=== PATIENT | female | born 2000 | race Caucasian/White ===

== ENCOUNTER 2021-02-01 13:46 | Emergency (ER) | payer MEDICAID, SELFPAY ==
--- NOTE | ~2021-02-01 | XR_ITS ---
EXAMINATION: XR KNEE, RIGHT CLINICAL INFORMATION: Right knee pain status post injury. COMPARISON: None TECHNIQUE: Four views of the right knee. FINDINGS: Bones and soft tissues are normal. No fracture or joint effusion. Alignment is anatomic. Joint spaces are well maintained. No abnormal soft tissue calcification. XR/XR knee RT 4V IMPRESSION: Unremarkable right knee.
[2021-02-01 14:09] VITALS: BP 107/68; PULSE 90; RESP 18; TEMP 36.8; O2SAT 97; BMI 28.3
--- NOTE | 2021-02-01 14:57 | ED.LOWEXIN ---
HPI - Extremity Injury (Lower) General Chief Complaint: Extremity Injury, Lower Stated Complaint: rt leg pain Time Seen by Provider: 02/01/21 14:57 History of Present Illness HPI Narrative: Complains of right knee pain after twisting it, pain is mild, he twisted it yesterday Related Data Previous Rx's Medication Instructions Recorded ibuprofen 600 mg PO Q6H PRN #20 tab 02/01/21 ibuprofen 600 mg PO Q6H PRN #20 tab 02/01/21 Allergies Allergy/AdvReac Type Severity Reaction Status Date / Time No Known Allergies Allergy Unverified 08/07/20 17:00 Review of Systems Review of Systems: Positive for right knee pain, negatives are no fever no chills no dizziness no weakness no neck pain no back pain no rash no numbness no weakness, no other joint pains PMFSH Past Medical History Source: nursing notes reviewed Medical History (Updated 02/07/21 @ 10:28 by DELIA Martinez) No known health problems Social History Social History Advance Directives: No Advance Directives Information Provided: No Physical Exam Vital Signs: Vital Signs: Last Vital Signs Temp 98.2 F 02/01/21 14:09 Pulse 90 02/01/21 14:09 Resp 18 02/01/21 14:09 BP 107/68 02/01/21 14:09 Pulse Ox 97 02/01/21 14:09 Body Mass Index 28.3 General appearance is no acute distress, comfortable relax and cooperative The neck is supple Respiratory no acute distress Extremities the right knee is tender to the touch there is mild swelling no obvious effusion not red not warm extends to 180 flexes to around 90, he can do a straight leg raise no evidence of quadriceps or patellar injury Neurovascular intact distal Skin normal, no rashes Neuro no focal deficit, he is walking with a slight limp Course Course Course Narrative: Right knee x-ray was normal, patient is referred to Orthopedics as needed for follow-up for knee sprain Discharge Plan Discharge Clinical Impression: Right knee sprain Qualifiers: Encounter type: initial encounter Involved ligament of knee: unspecified ligament Qualified Code(s): S83.91XA - Sprain of unspecified site of right knee, initial encounter Patient Disposition: Home, Self-Care Additional Instructions: X-ray was normal, follow with orthopedist for further evaluation Prescriptions: New ibuprofen 600 mg tablet 600 mg PO Q6H PRN (Reason: pain) Qty: 20 RF: 0 ibuprofen 600 mg tablet 600 mg PO Q6H PRN (Reason: pain) Qty: 20 RF: 0 Referrals: Cristopher Gill MD [Physician] - 2 days (Right knee sprain) Stand Alone Forms: Work/School Release Interventions: ED Discharge Assessment Last Done: 02/01/21 16:26 Discharge Date/Time: 02/01/21 16:27
== END 2021-02-01 16:27 | disposition home or self-care (01) ==
PROVIDERS: Emergency Provider Emergency Medicine
DX: S83.8X1A Sprain of other specified parts of right knee, initial encounter (principal); W50.0XXA Accidental hit or strike by another person, initial encounter; Y93.9 Activity, unspecified; Y92.019 Unspecified place in single-family (private) house as the place of occurrence of the external cause; Y99.9 Unspecified external cause status
CPT/HCPCS: 73564; 99283

== ENCOUNTER 2021-06-21 17:38 | Emergency (ER) | payer OTHER, MEDICAID, SELFPAY ==
[2021-06-21 17:56] VITALS: BP 118/74; PULSE 93; RESP 18; TEMP 36; O2SAT 98; BMI 27.4
[2021-06-21 19:37] VITALS: BP 112/63; PULSE 88; RESP 18; TEMP 36.8; O2SAT 99
[2021-06-21 19:38] VITALS: BP 109/73; PULSE 89; RESP 16; O2SAT 98
--- NOTE | 2021-06-21 19:40 | PC.NURSE ---
patient a&ox3, pt c/o 9 pain, to bilateral shoulders and neck, vss, will continue to monitor.
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
== END 2021-06-21 20:52 | disposition home or self-care (01) ==
PROVIDERS: Emergency Provider Internal Medicine
DX: S19.9XXA Unspecified injury of neck, initial encounter (principal); M54.2 Cervicalgia; V49.9XXA Car occupant (driver) (passenger) injured in unspecified traffic accident, initial encounter; Y93.9 Activity, unspecified; Y92.410 Unspecified street and highway as the place of occurrence of the external cause
CPT/HCPCS: 99282; 99284

== ENCOUNTER 2022-03-04 08:35 | Emergency (ER) | payer MEDICAID, SELFPAY ==
--- NOTE | ~2022-03-04 | XR_ITS ---
EXAMINATION: XR RIBS, BILATERAL CLINICAL INFORMATION: Pain COMPARISON: 02/09/2019 TECHNIQUE: Single view of the chest and 3 detailed views of the ribs FINDINGS: The chest film shows no pneumothorax or effusion. Mediastinal contours are within normal limits. The detailed rib images do not demonstrate evidence for fracture. XR/XR ribs BI min 4V w CXR1V IMPRESSION: No suspicious finding. No pneumothorax or effusion. No fracture is seen
[2022-03-04 09:19] VITALS: BP 115/72; PULSE 93; RESP 18; TEMP 36.3; O2SAT 97; BMI 26.9
--- NOTE | 2022-03-04 10:13 | ED.GENADULT ---
HPI - General Adult General Chief complaint: General Medical Stated complaint: both sides rib pain Time Seen by Provider: 03/04/22 09:00 Source: patient Mode of arrival: ambulatory Limitations: no limitations History of Present Illness HPI narrative: 21-year-old female presents to the ER with complaints of bilateral lower rib pain intermittently for the last 1 year. She states that it worsened yesterday and she was feeling ?air bubbles in the bottom of her lungs. She denies any trauma or ever having any type of workup for this. She usually takes Tylenol with improvement in her rib pain. She states yesterday the pain got worse and she felt the air bubbles in her lungs so she decided to come to the ER today for evaluation. She denies any chest pain or shortness of breath. She has no fever or chills. She has no history of blood clots in herself or her family. She has no PE risk factors. MD complaint: Bilateral lower rib pain Onset (ago): year(s) Location: chest Radiation: non-radiation Severity: moderate Severity scale (1-10): 5 Quality: aching Pain Consistency: intermittent Relieving factors: medication Exacerbating factors: none Associated symptoms: denies other symptoms Treatments prior to arrival: none Related Data Previous Rx's Medication Instructions Recorded ibuprofen 600 mg tablet 600 mg PO Q6H PRN #20 tab 02/01/21 ibuprofen 600 mg tablet 600 mg PO Q6H PRN #20 tab 02/01/21 ibuprofen 600 mg tablet 600 mg PO Q6H PRN #20 tab 06/21/21 lidocaine 5 % topical patch 1 patch TOPICAL DAILY #15 ea 03/04/22 naproxen 500 mg tablet 500 mg PO BID PRN #20 tab 03/04/22 Allergies Allergy/AdvReac Type Severity Reaction Status Date / Time No Known Allergies Allergy Unverified 08/07/20 17:00 Review of Systems Review of Systems: Constitutional: No Fever, No Chills ENT/Mouth: No sore throat, No Rhinorrhea Cardiovascular: + Chest Pain (lower ribs), No SOB, No Orthopnea, No Edema Respiratory: No Cough, No Sputum, No Wheezing, No dyspnea Gastrointestinal: No Nausea, No Vomiting, No Diarrhea, No abdominal Pain Musculoskeletal: No joint pain, No Myalgias Skin: No Skin Lesions, No rash Neuro: No Weakness, No Dizziness, No Headache Heme/Lymph: No Bruising, No Lymphadenopathy [facility] Past Medical History Medical History No known health problems Surgical History No history of previous surgery Social History Social History Alcohol intake: current Alcohol intake frequency: holidays/special occasions only Patient Tobacco Use Status: Never used Tobacco Advance Directives: No Advance Directives Information Provided: No Patient : No Physical Exam ED Vital Signs: Vital Signs - 24 hr 03/04/22 09:19 Temperature 97.3 F Pulse Rate 93 Respiratory Rate 18 Blood Pressure 115/72 Pulse Oximetry 97 BMI result Body Mass Index 26.9 Appearance: Alert. Oriented X3. No acute distress. Eyes: Pupils equal, round and reactive to light. ENT: Pharynx normal. Neck: Normal inspection. Neck supple. CVS: Normal heart rate and rhythm. Pulses normal. Normal inspection of the chest wall, mild bilateral lower rib tenderness without any crepitus or palpable mass. Respiratory: No respiratory distress. Breath sounds normal. Abdomen: Soft and nontender. +BS x4 Skin: Skin warm and dry. Normal skin color. Normal skin turgor. No rashes. Extremities: No lower extremity edema. No calf tenderness. Neuro: Oriented X 3. Grossly normal, nonfocal Course Course Course Narrative: 21-year-old female presents to the ER with nontraumatic bilateral rib pain for the last 1 year. Exam is benign. X-rays show normal ribs and lungs. Etiology most likely musculoskeletal, possible costochondritis. Will treat with NSAID and have her follow-up with her primary care doctor. Patient is stable for discharge home. Critical Care Time Critical Care Time Critical Care Time: No Discharge Plan Discharge Clinical Impression: Rib pain Patient Disposition: Home, Self-Care Instructions: Noncardiac Chest Pain (ED) Additional Instructions: Your x-rays today were normal. Recommend trial of anti-inflammatory pain medication and pain patches to help with your pain. Recommend following up with your doctor for further evaluation and treatment. If you develop new or worsening symptoms call 911 or come back to the ER for further evaluation. Prescriptions: New lidocaine 5 % adhesive patch,medicated 1 patch topical DAILY Qty: 15 0RF Rx Instructions: leave on most painful area for up to 12 hrs naproxen 500 mg tablet 500 mg PO BID PRN (Reason: pain) Qty: 20 0RF No Action ibuprofen 600 mg tablet 600 mg PO Q6H PRN (Reason: pain) Qty: 20 0RF ibuprofen 600 mg tablet 600 mg PO Q6H PRN (Reason: pain) Qty: 20 0RF ibuprofen 600 mg tablet 600 mg PO Q6H PRN (Reason: pain) Qty: 20 0RF Stand Alone Forms: Work/School Release
== END 2022-03-04 11:21 | disposition home or self-care (01) ==
PROVIDERS: Emergency Provider Emergency Medicine
DX: R07.81 Pleurodynia (principal); R07.82 Intercostal pain; Z79.899 Other long term (current) drug therapy
CPT/HCPCS: 71111; 99283

== ENCOUNTER 2023-07-22 12:59 | Outpatient (REF) | payer MEDICAID, SELFPAY ==
[2023-07-22 16:32] LABS: Estimated Average Glucose 100 mg/dL; Hemoglobin A1c % 5.1 % (<6.0)
[2023-07-22 16:33] LABS: Basophils Absolute Auto 0.1 X10*3/uL (0.0-0.2); Basophils Percent Auto 0.8 % (0-2); Eosinophils Absolute Auto 0.1 X10*3/uL (0.0-0.4); Eosinophils Percent Auto 0.9 % (0-4); Hematocrit 49.8 % (37.0-47.0); Hemoglobin 15.7 g/dl (12.0-16.0); Imm Gran Abs Auto 0.05 X10*3/uL (0.00-0.03); Imm Gran Pct Auto 0.6 % (0.0-0.4); Lymphocytes Absolute Auto 2.5 X10*3/uL (1.2-4.9); Lymphocytes Percent Auto 31.2 % (20-40); MANUAL DIFF FLAG SCAN; Mean Corpuscular HGB Conc 31.5 g/dl (31.0-35.0); Mean Corpuscular Hemoglobin 26.8 pg (27.0-33.0); Mean Platelet Volume 13.2 fL (9.4-12.3); Monocytes Absolute Auto 0.5 X10*3/uL (0.1-1.2); Monocytes Percent Auto 6.3 % (2-11); Neutrophils Absolute Auto 4.8 x10*3/uL (2.0-8.3); Neutrophils Percent Auto 60.2 % (45-73); Platelet Count 270 X10*3/uL (160-400); Red Blood Count 5.86 X10*6/uL (4.20-5.50); Red Cell Distribution Width 14.6 % (11.0-16.0); SCAN SMEAR FLAG 1
[2023-07-22 16:41] LABS: PLT ABN DIST 1
[2023-07-22 16:42] LABS: SLIDE REVIEW VERIFIED
[2023-07-22 16:51] LABS: Alanine Aminotransferase 19 U/L (0-31); Albumin Level 4.9 g/dL (3.5-5.0); Alkaline Phosphatase 78 U/L (39-117); Anion Gap 17 (12-20); Aspartate Amino Transferase 19 U/L (5-31); Bilirubin Total 0.8 mg/dL (0.0-1.0); Blood Urea Nitrogen 7 mg/dL (9-16); Calcium 10.3 mg/dL (8.4-10.2); Carbon Dioxide 20 mmol/L (22-29); Chloride 108 mmol/L (96-108); Cholesterol 200 mg/dL (<200); Estimated Glomerular Filt Rate > 60; Glucose Random 83 mg/dL (60-115); HDL Cholesterol 50 mg/dL (>40); LDL Cholesterol Calculated 135 mg/dL (<100); Potassium 4.5 mmol/L (3.3-5.1); Sodium 140 mmol/L (135-145); Total Protein 8.2 g/dL (6.5-8.0); Triglycerides 75 mg/dL (<150)
[2023-07-22 17:06] LABS: TSH reflex Free T4 0.47 uIU/mL (0.32-4.0)
[2023-07-23 07:32] LABS: CT PCR NOT DETECTED (Not Detect.); NG PCR NOT DETECTED (Not Detect.)
[2023-07-23 14:21] LABS: HBS Num1 0.31 mIU/mL (0-7.99); HBsAGNum1 0.33 S/CO (0.00-0.99); HIV AB/AG Nonreactive (Nonreactive); HIV Num 1 0.05 S/CO (0.00-0.99); Hepatitis B Core Antibody Nonreactive (Nonreactive); Hepatitis B Surface Antigen Negative (Negative); ~Hepatitis B Surface Antibody NONREACTIVE (Nonreactive)
[2023-07-23 14:40] LABS: ~HepC Num1 0.06 S/CO (0.00-0.79); ~Hepatitis C Antibody Nonreactive (Nonreactive)
[2023-07-25 09:02] LABS: Syphilis Screen Nonreactive (Nonreactive)
[2023-07-27 12:59] LABS: VITAMIN D (1,25 OH) D3 39 pg/mL; Vit D (1,25-Dihydroxy) Total 39 pg/mL (18-72); Vitamin D (1,25 OH) D2 <8 pg/mL
== END 2023-07-22 13:00 | disposition home or self-care (01) ==
LOC: HO.HHCL 12:59
PROVIDERS: Visit Provider Student in an Organized Health Care Education/Training Program
DX: Z00.00 Encounter for general adult medical examination without abnormal findings (principal); Z11.4 Encounter for screening for human immunodeficiency virus [HIV]; Z11.3 Encounter for screening for infections with a predominantly sexual mode of transmission
CPT/HCPCS: 0353U; 80053; 80061; 82652; 83036; 84443; 85025; 86704; 86706; 86780; 86803; 87340; 87389

== ENCOUNTER 2025-08-12 13:52 | Outpatient (REF) | payer MEDICAID, SELFPAY ==
[2025-08-12 16:10] LABS: MANUAL DIFF FLAG NO
[2025-08-12 16:29] LABS: Hemoglobin A1C 137.3217 umol/L; Total Hemoglobin (HGBA1C) 3802.0775 umol/L
[2025-08-12 16:30] LABS: Hematocrit 44.1 % (37.0-47.0); Hemoglobin 14.3 g/dl (12.0-16.0); Imm Gran Abs Auto 0.06 X10*3/uL (0.00-0.03); Imm Gran Pct Auto 0.7 % (0.0-0.4); Lymphocytes Absolute Auto 2.9 X10*3/uL (1.2-4.9); Mean Corpuscular HGB Conc 32.4 g/dl (31.0-35.0); Mean Corpuscular Hemoglobin 27.2 pg (27.0-33.0); Mean Corpuscular Volume 83.8 fL (80.0-98.0); NRBC Abs Auto 0.000 X10*3/uL (0.0-0.012); NRBC Pct Auto 0.0 /100WBC (0.0-0.2); Platelet Count 246 X10*3/uL (160-400); Red Blood Count 5.26 X10*6/uL (4.20-5.50); White Blood Count 8.5 X10*3/uL (4.8-10.8)
[2025-08-12 16:34] LABS: Appearance Urine Clear; Glucose Urine UA Negative (Negative); PH 6.0 (5.0-9.0); Specific Gravity - Urine 1.020 (1.005-1.025)
[2025-08-12 16:53] LABS: Alanine Aminotransferase 37 U/L (0-31); Albumin Level 4.5 g/dL (3.5-5.0); Alkaline Phosphatase 86 U/L (39-117); Anion Gap 8 (12-20); Aspartate Amino Transferase 53 U/L (5-31); Blood Urea Nitrogen 7 mg/dL (9-16); Calcium 9.0 mg/dL (8.4-10.2); Carbon Dioxide 27 mmol/L (22-29); Chloride 109 mmol/L (96-108); Cholesterol 175 mg/dL (<200); Estimated Glomerular Filt Rate > 60; HDL Cholesterol 34 mg/dL (>40); Potassium 4.2 mmol/L (3.3-5.1); Sodium 140 mmol/L (135-145); Thyroid Stimulating Hormone 0.50 uIU/mL (0.32-4.0); Total Protein 7.3 g/dL (6.5-8.0); Triglycerides 136 mg/dL (<150)
[2025-08-13 01:18] LABS: Bacterial Vaginosis PCR NEGATIVE (Negative); Candida Group PCR NOT DETECTED (Not Detect); Candida glab krusei PCR NOT DETECTED (Not Detect); Trichomonas vaginalis PCR NOT DETECTED (Not Detect)
[2025-08-13 13:30] LABS: HBS Num1 0.34 mIU/mL (0-7.99); HBc Num1 0.08 S/CO (0.00-0.79); HBsAGNum1 0.43 S/CO (0.00-0.99); HIV Num 1 0.05 S/CO (0.00-0.99); Hepatitis B Surface Antigen Negative (Negative); ~HepC Num1 0.09 S/CO (0.00-0.79); ~Hepatitis B Surface Antibody NONREACTIVE (Nonreactive); ~Hepatitis C Antibody Nonreactive (Nonreactive)
== END 2025-08-12 13:53 | disposition home or self-care (01) ==
LOC: HO.HHCL 13:52
PROVIDERS: PCP Nurse Practitioner Family; Visit Provider Nurse Practitioner Family
DX: Z00.00 Encounter for general adult medical examination without abnormal findings (principal); Z11.59 Encounter for screening for other viral diseases; R35.0 Frequency of micturition
CPT/HCPCS: 36415; 80053; 80061; 81003; 81515; 83036; 84443; 85025; 86704; 86706; 86803; 87340; 87389